=== PATIENT | male | born 1945 | race Caucasian/White ===

== ENCOUNTER → 2016-11-15 | Outpatient (CLI) | payer MEDICARE | LOC: CLAB 08:28 | PROVIDERS: ATTEND Urology | DX: E29.1 Testicular hypofunction (principal); N40.1 Benign prostatic hyperplasia with lower urinary tract symptoms | CPT/HCPCS: 36415; 84153; 84403; 85014 ==

== ENCOUNTER → 2017-02-11 | Outpatient (CLI) | payer MEDICARE ==
[2017-02-11 08:43] LABS: AUTOMATED NEUTROPHIL # 5.1 TH/MM3 (1.8-7.7); BASOPHIL # 0.1 TH/MM3 (0-0.2); BASOPHIL % 0.6 % (0.0-2.0); EOSINOPHIL # 0.2 TH/MM3 (0-0.4); EOSINOPHIL % 2.6 % (0.0-4.0); HEMATOCRIT 48.9 % (39.0-51.0); HEMO FLAGS DIFF FINAL; LYMPHOCYTE # 1.8 TH/MM3 (1.0-4.8); MEAN CELL VOLUME 88.2 FL (80.0-100.0); MEAN CORPUSCULAR HEMOGLOBIN 29.2 PG (27.0-34.0); MEAN CORPUSCULAR HGB CONC 33.1 % (32.0-36.0); MONO % 10.1 % (0.0-8.0); NEUT % 64.7 % (16.0-70.0); PLATELET COUNT 171 TH/MM3 (150-450); RED BLOOD COUNT 5.55 MIL/MM3 (4.50-5.90); RED CELL DISTRIBUTION WIDTH 15.2 % (11.6-17.2); WHITE BLOOD COUNT 7.9 TH/MM3 (4.0-11.0)
[2017-02-11 08:51] LABS: BLOOD, URINE NEG (NEG); GLUCOSE,URINE NEG (NEG); KETONE, URINE NEG (NEG); NITRITE,URINE NEG (NEG); URINE COLOR LIGHT-YELLOW (YELLW/STRAW)
[2017-02-11 09:28] LABS: ALKALINE PHOSPHATASE 73 U/L (45-117); ALT (GPT) 35 U/L (12-78); ANION GAP 5 MEQ/L (5-15); AST (GOT) 24 U/L (15-37); BICARBONATE 31.3 MEQ/L (21.0-32.0); BLOOD UREA NITROGEN 10 MG/DL (7-18); CHLORIDE 104 MEQ/L (98-107); CREATINE KINASE 142 U/L (39-308); GLOMERULAR FILTRATION RATE 60 ML/MIN (>89); GLUCOSE,FASTING 104 MG/DL (74-99); LDL CHOLESTEROL 50 MG/DL (0-99); SODIUM (NA) 140 MEQ/L (136-145); TOTAL BILIRUBIN ADULT 0.4 MG/DL (0.2-1.0); URIC ACID 4.2 MG/DL (2.6-7.2)
[2017-02-11 10:34] LABS: MICRO ALBUMIN RANDOM URINE RAW 12.4 MG/L (0.0-30.0)
[2017-02-11 15:52] LABS: HEMOGLOBIN A1a 1.1 %; HEMOGLOBIN A1b 1.7 %; HEMOGLOBIN Ao 84.6 %; HEMOGLOBIN LA1C 2.1 %; HEMOGLOBIN P3 3.9 %
== END ==
LOC: CLAB 07:52
PROVIDERS: ATTEND Family Medicine
DX: E55.9 Vitamin D deficiency, unspecified (principal); K64.9 Unspecified hemorrhoids; J44.9 Chronic obstructive pulmonary disease, unspecified; N52.9 Male erectile dysfunction, unspecified; F32.9 Major depressive disorder, single episode, unspecified; F41.8 Other specified anxiety disorders; G47.00 Insomnia, unspecified; M54.5 Low back pain; E78.2 Mixed hyperlipidemia; I12.9 Hypertensive chronic kidney disease with stage 1 through stage 4 chronic kidney disease, or unspecified chronic kidney disease; N18.9 Chronic kidney disease, unspecified; E11.22 Type 2 diabetes mellitus with diabetic chronic kidney disease; M10.9 Gout, unspecified; E03.9 Hypothyroidism, unspecified; F17.200 Nicotine dependence, unspecified, uncomplicated; R10.11 Right upper quadrant pain; R86.1 Abnormal level of hormones in specimens from male genital organs; Z86.73 Personal history of transient ischemic attack (TIA), and cerebral infarction without residual deficits
CPT/HCPCS: 36415; 80053; 80061; 81001; 82043; 82306; 82550; 82607; 82746; 83036; 83970; 84402; 84403; 84443; 84550; 85025

== ENCOUNTER → 2017-06-16 | Outpatient (CLI) | payer MEDICARE ==
[2017-06-16 07:58] LABS: AUTOMATED NEUTROPHIL # 4.8 TH/MM3 (1.8-7.7); BASOPHIL # 0.1 TH/MM3 (0-0.2); BASOPHIL % 0.8 % (0.0-2.0); EOSINOPHIL # 0.2 TH/MM3 (0-0.4); EOSINOPHIL % 2.5 % (0.0-4.0); HEMATOCRIT 52.8 % (39.0-51.0); HEMO FLAGS DIFF FINAL; LYMPH % 23.1 % (9.0-44.0); LYMPHOCYTE # 1.7 TH/MM3 (1.0-4.8); MEAN CELL VOLUME 90.7 FL (80.0-100.0); MEAN CORPUSCULAR HEMOGLOBIN 30.1 PG (27.0-34.0); MEAN CORPUSCULAR HGB CONC 33.2 % (32.0-36.0); MONO % 8.5 % (0.0-8.0); NEUT % 65.1 % (16.0-70.0); PLATELET COUNT 141 TH/MM3 (150-450); RED BLOOD COUNT 5.82 MIL/MM3 (4.50-5.90); RED CELL DISTRIBUTION WIDTH 14.9 % (11.6-17.2); WHITE BLOOD COUNT 7.4 TH/MM3 (4.0-11.0)
[2017-06-16 08:02] LABS: BLOOD, URINE NEG (NEG); GLUCOSE,URINE NEG (NEG); KETONE, URINE NEG (NEG); NITRITE,URINE NEG (NEG); SQUAMOUS EPITHELIAL CELL URINE <1 /hpf (0-5); URINE COLOR YELLOW (YELLW/STRAW)
[2017-06-16 08:22] LABS: MICRO ALBUMIN RANDOM URINE RAW 10.7 MG/L (0.0-30.0)
[2017-06-16 08:29] LABS: ALT (GPT) 28 U/L (12-78)
[2017-06-16 08:37] LABS: ANION GAP 5 MEQ/L (5-15); AST (GOT) 22 U/L (15-37); BICARBONATE 29.4 MEQ/L (21.0-32.0); BLOOD UREA NITROGEN 14 MG/DL (7-18); CHLORIDE 104 MEQ/L (98-107); GLOMERULAR FILTRATION RATE 64 ML/MIN (>89); GLUCOSE,FASTING 104 MG/DL (74-99); POTASSIUM 4.1 MEQ/L (3.5-5.1); SODIUM (NA) 138 MEQ/L (136-145); URIC ACID 4.6 MG/DL (2.6-7.2)
[2017-06-16 08:54] LABS: ALKALINE PHOSPHATASE 79 U/L (45-117); CREATINE KINASE 126 U/L (39-308); HDL CHOLESTEROL 31.6 MG/DL (40.0-60.0); LDL CHOLESTEROL 56 MG/DL (0-99); TOTAL BILIRUBIN ADULT 0.4 MG/DL (0.2-1.0)
[2017-06-16 16:18] LABS: HEMOGLOBIN A1a 1.3 %; HEMOGLOBIN A1b 1.9 %; HEMOGLOBIN Ao 84.1 %; HEMOGLOBIN LA1C 2.1 %; HEMOGLOBIN P3 3.9 %
== END ==
LOC: CLAB 07:02
PROVIDERS: ATTEND Urology
DX: N40.1 Benign prostatic hyperplasia with lower urinary tract symptoms (principal); E29.1 Testicular hypofunction; E78.2 Mixed hyperlipidemia; E03.9 Hypothyroidism, unspecified; E55.9 Vitamin D deficiency, unspecified; I10 Essential (primary) hypertension; E11.9 Type 2 diabetes mellitus without complications
CPT/HCPCS: 36415; 80053; 80061; 81001; 82043; 82306; 82550; 82607; 82746; 83036; 84153; 84402; 84403; 84410; 84443; 84550; 85025; 87086

== ENCOUNTER → 2017-11-18 | Outpatient (CLI) | payer MEDICARE ==
[2017-11-18 09:01] LABS: AUTOMATED NEUTROPHIL # 4.5 TH/MM3 (1.8-7.7); BASOPHIL # 0.1 TH/MM3 (0-0.2); BASOPHIL % 1.2 % (0.0-2.0); EOSINOPHIL # 0.2 TH/MM3 (0-0.4); EOSINOPHIL % 3.2 % (0.0-4.0); HEMATOCRIT 50.3 % (39.0-51.0); HEMOGLOBIN 17.1 GM/DL (13.0-17.0); LYMPH % 23.8 % (9.0-44.0); LYMPHOCYTE # 1.8 TH/MM3 (1.0-4.8); MEAN CELL VOLUME 93.2 FL (80.0-100.0); MEAN CORPUSCULAR HEMOGLOBIN 31.7 PG (27.0-34.0); MEAN PLATELET VOLUME 8.7 FL (7.0-11.0); MONO % 10.6 % (0.0-8.0); MONOCYTE # 0.8 TH/MM3 (0-0.9); NEUT % 61.2 % (16.0-70.0); PLATELET COUNT 153 TH/MM3 (150-450); RED BLOOD COUNT 5.39 MIL/MM3 (4.50-5.90); RED CELL DISTRIBUTION WIDTH 14.3 % (11.6-17.2); WHITE BLOOD COUNT 7.4 TH/MM3 (4.0-11.0)
[2017-11-18 09:12] LABS: BILIRUBIN, URINE NEG (NEG); BLOOD, URINE NEG (NEG); GLUCOSE,URINE NEG (NEG); KETONE, URINE NEG (NEG); NITRITE,URINE NEG (NEG); PH, URINE 6.5 (5.0-8.5); URINE COLOR LIGHT-YELLOW (YELLW/STRAW); URINE LEUKOCYTE ESTERASE NEG (NEG)
[2017-11-18 09:17] LABS: ALBUMIN 3.5 GM/DL (3.4-5.0); AST (GOT) 20 U/L (15-37); BICARBONATE 29.5 MEQ/L (21.0-32.0); BLOOD UREA NITROGEN 11 MG/DL (7-18); CALCIUM 8.8 MG/DL (8.5-10.1); CHLORIDE 104 MEQ/L (98-107); SODIUM (NA) 138 MEQ/L (136-145)
[2017-11-18 09:18] LABS: CHOLESTEROL 137 MG/DL (120-200); CREATININE 1.33 MG/DL (0.60-1.30); GLOMERULAR FILTRATION RATE 53 ML/MIN (>89); GLUCOSE,FASTING 98 MG/DL (74-99); TRIGLYCERIDES 258 MG/DL (42-150)
[2017-11-18 09:44] LABS: ALKALINE PHOSPHATASE 84 U/L (45-117); ALT (GPT) 32 U/L (12-78); CHOLESTEROL/ HDL RATIO 4.87 RATIO; HDL CHOLESTEROL 28.1 MG/DL (40.0-60.0); LDL CHOLESTEROL 57 MG/DL (0-99); TOTAL BILIRUBIN ADULT 0.4 MG/DL (0.2-1.0); TOTAL PROTEIN 6.9 GM/DL (6.4-8.2)
[2017-11-18 09:52] LABS: FOLATE GREATER THAN 20.0 NG/ML (3.1-17.5)
[2017-11-18 16:24] LABS: HEMOGLOBIN A1C 5.8 % (4.3-6.0)
[2017-11-20 15:00] LABS: FREE TESTOSTERONE 23.4 ng/dL (3.28-12.2)
== END ==
LOC: CLAB 08:19
PROVIDERS: ATTEND Family Medicine
DX: R86.1 Abnormal level of hormones in specimens from male genital organs (principal); E78.2 Mixed hyperlipidemia; E55.9 Vitamin D deficiency, unspecified; I12.9 Hypertensive chronic kidney disease with stage 1 through stage 4 chronic kidney disease, or unspecified chronic kidney disease; N18.9 Chronic kidney disease, unspecified; E11.22 Type 2 diabetes mellitus with diabetic chronic kidney disease; M10.9 Gout, unspecified; E03.9 Hypothyroidism, unspecified; N52.9 Male erectile dysfunction, unspecified; F32.9 Major depressive disorder, single episode, unspecified; F41.8 Other specified anxiety disorders; G47.00 Insomnia, unspecified; M54.5 Low back pain; J44.9 Chronic obstructive pulmonary disease, unspecified
CPT/HCPCS: 36415; 80053; 80061; 81001; 82043; 82306; 82550; 82607; 82746; 83036; 83970; 84403; 84410; 84443; 84550; 85025

== ENCOUNTER → 2017-12-15 | Outpatient (CLI) | payer MEDICARE | LOC: CLAB 07:32 | PROVIDERS: ATTEND Urology | DX: E29.1 Testicular hypofunction (principal) | CPT/HCPCS: 36415; 84153; 84403; 85014 ==

== ENCOUNTER 2018-10-09 05:45 | Observation (INO) ==
[2018-10-09] MEDS ORDERED: Vancomycin Inj 1,000 MG in Sodium Chlor 0.9% Inj 250 ML IV.SIG PRN (06:05)
[2018-10-09] MEDS ORDERED: Metoprolol Tartrate 25 MG Tablet PO ONE (06:07)
[2018-10-09] MEDS ORDERED: Chlorhexidine Gluconate 2% 1 Pack (2 Cloths) TOPICAL ONE (06:07)
[2018-10-09] MEDS ORDERED: Sod Chloride 0.9% Inj 1,000 ML IV.SIG SCH (06:15)
[2018-10-09] MEDS ORDERED: Bupivacaine/Epinephrine PF Inj 0.5% 30 ML Vial ONE (06:43)
[2018-10-09] MEDS ORDERED: Gelatin Size 100 Topical Foam ONE (06:43)
[2018-10-09] MEDS ORDERED: Thrombin Topical Soln 5,000 UNIT Vial TOPICAL ONE (06:43)
[2018-10-09] MEDS ORDERED: Sodium Chlor 0.9% Inj 500 ML IV.SIG SCH (07:00)
[2018-10-09] MEDS ORDERED: fentaNYL Citrate Inj 100 MCG/2 ML Ampul ONE ×3 (07:26→11:59)
[2018-10-09] MEDS ORDERED: Propofol Inj 500 MG/50 ML Vial ONE (07:43)
[2018-10-09] MEDS ORDERED: ceFAZolin 2 GM IV; once IV.SIG SCH (07:45)
[2018-10-09] MEDS ORDERED: Aluminum/Magnesium/Simethacone Susp 30 ML UDC PO PRN (11:25)
[2018-10-09] MEDS ORDERED: Acetaminophen 325 MG Tablet PO PRN (11:25)
[2018-10-09] MEDS ORDERED: Menthol 5.8 MG Lozenge BUCCAL PRN (11:25)
[2018-10-09] MEDS ORDERED: Bisacodyl 10 MG Supp RECTAL PRN (11:25)
--- NOTE | 2018-10-09 11:43 | P.OP ---
- Preoperative Diagnosis (1) Herniation of cervical intervertebral disc with radiculopathy (2) Other cervical disc degeneration at C6-C7 level Date of procedure: 10/09/18 Procedure: Anterior cervical C6-7 microdiscectomy with interbody fusion; anterior C6-7 cervical plate placement; C6-7 interbody cage placement; microsurgical technique Anesthesia: JEREMÍAS Surgeon: Vadim Craft MD [employer] T[employer]: Brii Finney Operation and Findings: Following administration of general endotracheal anesthesia, the patient received a gram of vancomycin and Decadron 10 mg intravenously. Sequential compression devices were placed in supine position on a Rachid table and all pressure points adequately padded. The head secured in a donut and anterior cervical region then shaved and prepped with Chloraprep and sterilely draped with Ioban along with the usual sterile draping. A transverse skin incision on the left side of the neck was then made after infiltrating the skin with 0.5% Marcaine with epinephrine solution extending down through the platysma. At the anterior border of the sternocleidomastoid further dissection was undertaken developing a plane between the carotid sheath laterally and the trachea esophagus medially. The prevertebral fascia was exposed and dissected out. The medial attachments of the longus colli muscles were detached and a self- retaining retractor used for exposure. The C6-7 disc space was localized with a marking the disc space and using lateral fluoroscopy. [place] distraction screws 14 mm length were placed one in the C6 and one in the C7 body interbody distraction and exposure. There was significant disc degeneration with disc height collapse and anterior osteophytes noted at the C6-7 level and the osteophytes were resected with a Leksell and annulus incised with a 15 blade and further dissection undertaken using microtechnique with microscope magnification. Diskectomy was undertaken with pituitaries and the endplates were also decorticated with curettes and drill bit. And more posteriorly there was disk osteophyte complex with a herniated disc fragment on the right side extending into the foramen also compressing the thecal sac along with a significant uncovertebral joint hypertrophy with foraminal stenosis which was decompressed along with removal of the posterior longitudinal ligament. The foramen was decompressed bilaterally using a Kerrison's and palpation with a nerve hook, the exiting nerve roots were felt to be free. The area was then copiously irrigated. I then placed a Peek cage packed with local autograft bone at the C6-7 interspace under fluoroscopy guidance. [place] distraction pins were removed and the holes plugged with Gelfoam for hemostasis. In order to facilitate the fusion and provide stabilization, a Precision spine cervical Uniplate was then placed with a 14 mm variable angle screw in the C6 body and 14 mm fixed angle screw in the C7 body. The plate screw locking mechanism was then engaged. AP and lateral fluoroscopy confirmed good placement of the construct and the retractor was then removed. Muscular bleeding points were cauterized with bipolar cautery and Gelfoam was then also used for hemostasis which was removed. The platysma was then approximated using 3-0 Vicryl interrupted stitches and 3-0 Vicryl subcuticular stitch also placed in an interrupted fashion, and final skin closure was with Mastisol and Steri-Strips. Sterile dressing was then applied. The patient was then extubated and taken to the recovery room. There are no intraoperative complications and all sponge and needle counts were correct at the end of procedure. Estimated blood loss was about 25 cc. The patient did undergo intraoperative neurologic monitoring which remained stable throughout the surgery.
[2018-10-09] MEDS ORDERED: HYDROmorphone PF Inj 1 MG/ML Ampul IV.PUSH PRN (12:15)
--- NOTE | 2018-10-09 14:35 | XR ---
EXAM DATE: 10/09/2018 2:21 PM EST AGE/SEX: 73 years / Male INDICATIONS: Fusion C6,C7 with screws and plate placement. CLINICAL DATA: This is the patient's initial encounter. Patient reports that signs and symptoms have been present for 1 day and indicates a pain score of Nonresponsive. MEDICAL/SURGICAL HISTORY: None. None. COMPARISON: . FINDINGS: 3 magnified C-arm spot views are centered over the cervical spine. There is an anterior fusion plate with intervening bone graft device involving what is felt to be C6-C7. The exact level is difficult t o ascertain given the style of acquisition. Good alignment noted. Endotracheal tube and esophageal te mperature probe noted. CONCLUSION: Limited images as detailed above. Electronically signed by: Quentin Iraheta MD 10/09/2018 2:34 PM EST
[2018-10-09] MEDS: ceFAZolin 1 GM Premix Inj 1 GM/50 ML FROZ.PIGGY IV.SIG SCH ×2 (17:52→23:29)
[2018-10-09] MEDS: Pregabalin 75 MG Capsule PO SCH (20:09)
[2018-10-09] MEDS: Senna/Docusate Sodium 8.6/50 MG Tablet PO SCH (20:09)
[2018-10-09] MEDS ORDERED: Allopurinol 100 MG Tablet PO SCH (21:00)
[2018-10-10] MEDS ORDERED: Levothyroxine 100 MCG Tablet PO SCH (06:00)
[2018-10-10 08:08] VITALS: BP 117/70; PULSE 57; RESP 17; TEMP 98; O2SAT 95
[2018-10-10] MEDS ORDERED: amLODIPine 5 MG Tablet PO SCH (09:00)
[2018-10-10] MEDS: Pregabalin 75 MG Capsule PO SCH (10:02)
[2018-10-10] MEDS: ceFAZolin 1 GM Premix Inj 1 GM/50 ML FROZ.PIGGY IV.SIG SCH (10:02)
[2018-10-10] MEDS: Senna/Docusate Sodium 8.6/50 MG Tablet PO SCH (10:02)
--- NOTE | 2018-10-10 11:58 | P.PNNS ---
Subjective Interval history: Doing well, not requiring any pain medication, preop symptoms gone Physical Exam Vital signs: Vital Signs 10/09/18 12:00 10/09/18 12:15 10/09/18 12:30 Temperature 97.6 F Pulse Rate 88 80 77 Respiratory Rate 18 18 18 Blood Pressure 152/82 H 136/70 140/76 Pulse Oximetry 97 97 97 10/09/18 13:15 10/09/18 15:40 10/09/18 19:49 Temperature 97.5 F L 98 F 98 F Pulse Rate 83 83 81 Respiratory Rate 18 17 18 Blood Pressure 140/70 136/69 138/61 Pulse Oximetry 97 94 L 94 L 10/10/18 03:55 10/10/18 08:00 Temperature 97.8 F 98.0 F Pulse Rate 51 L 57 L Respiratory Rate 16 17 Blood Pressure 106/61 117/70 Pulse Oximetry 92 L 95 Intake & Output 10/09/18 10/10/18 10/10/18 18:59 06:59 18:59 Intake Total 2850 / 2850 1610 / 1610 50 / 50 Output Total 25 / 25 425 / 425 Balance 2825 / 2825 1185 / 1185 50 / 50 Weight 96.9 kg 98.4 kg Intake: IV 50 / 50 1050 / 1050 50 / 50 NS + KCl 20 mEq Inj 1,000 ML @ 1000 / 1000 100 mls/hr IV.CONT .Q10H [facility] Rx #:[id number] Ancef 1 GM Premix Inj 1 gm In 50 / 50 50 / 50 50 / 50 50 ml @ 100 mls/hr IV.SIG Q8H [facility] Rx#:[id number] Oral 560 / 560 Anesthesia Amount 2800 / 2800 Output: Urine 425 / 425 Estimated Blood Loss 25 / 25 Other: Date of Last Bowel Movement 10/09/18 # Bowel Movements 2 Narrative: A&O x 3 CN II intact Dressing c/d/u full strength UE/LE Assessment and Plan - Plan Doing well after ACDF, pod #1 d/c home today
== END 2018-10-10 12:43 | disposition home or self-care (01) ==
LOC: HSDI 05:45 → HSDC 05:45 → N06 12:40
PROVIDERS: ADMIT Neurological Surgery; ATTEND Neurological Surgery